=== PATIENT | female | born 1955 | race Caucasian/White ===

== ENCOUNTER 2018-06-29 13:24 | Emergency (ER) | payer OTHER ==
[2018-06-29] MEDS: KETOROLAC 15 MG INJ IM (16:03)
== END 2018-06-29 17:37 | disposition home or self-care (01) ==
LOC: FTE 13:24
DX: M65.28 Calcific tendinitis, other site (principal); M79.605 Pain in left leg; M54.5 Low back pain; E11.9 Type 2 diabetes mellitus without complications; Z79.84 Long term (current) use of oral hypoglycemic drugs
CPT/HCPCS: 72100; 72220; 73510; 73550; 96372; 99284-25

== ENCOUNTER 2018-07-25 17:59 | Emergency (ER) | payer OTHER ==
[2018-07-25] MEDS ORDERED: LIDOCAINE 1% (MDV) 20 ML INJ SC (21:00)
[2018-07-25] MEDS: LIDOCAINE 1% (MPF) 30 ML INJ SC (21:05)
[2018-07-25] MEDS: IBUPROFEN 600 MG TAB PO ×2 (21:21→21:23)
== END 2018-07-25 21:34 | disposition home or self-care (01) ==
LOC: FTE 17:59
DX: L60.0 Ingrowing nail (principal); I10 Essential (primary) hypertension; E11.9 Type 2 diabetes mellitus without complications; Z79.84 Long term (current) use of oral hypoglycemic drugs
CPT/HCPCS: 11765; 99283-25

== ENCOUNTER 2018-10-27 20:20 | Emergency (ER) | payer OTHER ==
[2018-10-27] MEDS: KETOROLAC 15 MG INJ IM (23:24)
== END 2018-10-28 00:39 | disposition home or self-care (01) ==
LOC: FTE 10-28 00:39
DX: I10 Essential (primary) hypertension (principal); E11.9 Type 2 diabetes mellitus without complications; Z79.84 Long term (current) use of oral hypoglycemic drugs
CPT/HCPCS: 96372; 99284-25

== ENCOUNTER 2018-12-02 18:51 | Emergency (ER) | payer OTHER ==
[2018-12-02] MEDS: IBUPROFEN 600 MG TAB PO (19:54)
[2018-12-02] MEDS: HYDROCODONE/APAP (5/325) TAB PO (19:55)
== END 2018-12-02 22:01 | disposition home or self-care (01) ==
LOC: FTE 18:51
DX: M79.605 Pain in left leg (principal); E11.9 Type 2 diabetes mellitus without complications; I10 Essential (primary) hypertension; Z79.84 Long term (current) use of oral hypoglycemic drugs
CPT/HCPCS: 73510; 99283-25

== ENCOUNTER 2019-01-05 22:55 | Emergency (ER) | payer OTHER ==
[2019-01-06] MEDS: DIAZEPAM 5 MG/ML SYG IM (01:46)
[2019-01-06] MEDS: KETOROLAC 60 MG INJ IM (01:46)
== END 2019-01-06 03:46 | disposition home or self-care (01) ==
LOC: E/R 22:55
DX: M54.9 Dorsalgia, unspecified (principal); I10 Essential (primary) hypertension; E11.9 Type 2 diabetes mellitus without complications; Z79.84 Long term (current) use of oral hypoglycemic drugs
CPT/HCPCS: 72100; 72170; 96372; 99284-25

== ENCOUNTER 2019-01-31 19:20 | Emergency (ER) | payer OTHER ==
[2019-01-31 20:33] LABS: ADD UMIC YES; UR ASCORBIC ACID NEGATIVE (NEGATIVE); UR BILIRUBIN (Dip) NEGATIVE (NEGATIVE); UR BLOOD (Dip) 1+ mg/dL (NEGATIVE); UR CLARITY CLEAR (CLEAR); UR COLOR YELLOW (YELLOW); UR GLUCOSE (Dip) 3+ mg/dL (NEGATIVE); UR KETONES (Dip) NEGATIVE (NEGATIVE); UR LEUKOCYTE ESTERASE (Dip) NEGATIVE Leu/ul (NEGATIVE); UR NITRITE (Dip) NEGATIVE (NEGATIVE); UR RBC 2 /HPF (0-5); UR SPECIFIC GRAVITY (Dip) 1.037 (1.003-1.030); UR TOTAL PROTEIN (Dip) NEGATIVE (NEGATIVE); UR UROBILINOGEN (Dip) NEGATIVE (NEGATIVE); UR WBC 1 /HPF (0-5)
[2019-01-31] MEDS: KETOROLAC 15 MG INJ IM (22:12)
== END 2019-01-31 22:13 | disposition home or self-care (01) ==
LOC: FTE 19:20
DX: M79.605 Pain in left leg (principal); I10 Essential (primary) hypertension; E11.9 Type 2 diabetes mellitus without complications; Z79.84 Long term (current) use of oral hypoglycemic drugs
CPT/HCPCS: 81001; 96372; 99284-25

== ENCOUNTER 2019-02-03 19:53 | Emergency (ER) | payer OTHER ==
[2019-02-03 21:49] LABS: ADD MAN DIFF? NO; URINE BLOOD (Dip) POC Trace-lysed (NEGATIVE); URINE KETONES (Dip) POC Negative (NEGATIVE); URINE LEUKOCYTE EST (Dip) POC Negative (NEGATIVE); URINE NITRITE (Dip) POC Negative (NEGATIVE); URINE TOTAL PROTEIN POC Negative (NEGATIVE)
[2019-02-03 21:52] LABS: BASOPHIL # 0.1 10^3/ul (0.0-0.1); BASOPHILS % 0.9 % (0.0-2.0); EOSINOPHILS # 0.4 10^3/ul (0.0-0.5); EOSINOPHILS % 7.5 % (0.0-7.0); HEMATOCRIT 38.7 % (37.0-47.0); LYMPHOCYTES # 2.3 10^3/ul (0.8-2.9); LYMPHOCYTES % 40.1 % (15.0-51.0); MEAN CORPUSCULAR HEMOGLOBIN 29.5 pg (29.0-33.0); MEAN CORPUSCULAR HGB CONC 33.6 g/dl (32.0-37.0); MEAN CORPUSCULAR VOLUME 87.8 fl (82.0-101.0); MEAN PLATELET VOLUME 9.9 fl (7.4-10.4); MONOCYTE # 0.5 10^3/ul (0.3-0.9); MONOCYTES % 8.6 % (0.0-11.0); NEUTROPHIL # 2.5 10^3/ul (1.6-7.5); NEUTROPHILS % 42.6 % (39.0-77.0); PLATELET COUNT 253 10^3/UL (140-415); RED BLOOD COUNT 4.41 10^6/ul (4.20-5.40); RED CELL DISTRIBUTION WIDTH 12.3 % (11.5-14.5)
[2019-02-03 21:52] LABS: WHITE BLOOD COUNT 5.8 10^3/ul (4.8-10.8)
[2019-02-03 22:08] LABS: ALANINE AMINOTRANSFERASE 41 IU/L (13-69); ALBUMIN 3.9 g/dl (3.3-4.9); ALBUMIN/GLOBULIN RATIO 1.25; ALKALINE PHOSPHATASE 231 IU/L (42-121); ANION GAP 7 (5-13); ASPARTATE AMINO TRANSFERASE 30 IU/L (15-46); BILIRUBIN,INDIRECT 0.3 mg/dl (0-1.1); BILIRUBIN,TOTAL 0.3 mg/dl (0.2-1.3); BLOOD UREA NITROGEN 14 mg/dl (7-20); CALCIUM 9.4 mg/dl (8.4-10.2); CARBON DIOXIDE 28 mmol/L (21-31); CHLORIDE 105 mmol/L (97-110); CREATININE 0.35 mg/dl (0.44-1.00); Estimated GFR > 60 mL/min (>60); GLUCOSE 253 mg/dl (70-220); LIPASE 50 U/L (23-300); POTASSIUM 3.9 mmol/L (3.5-5.1); SODIUM 140 mmol/L (135-144)
[2019-02-03] MEDS: morphine 2 MG INJ IV (22:24)
[2019-02-03] MEDS: KETOROLAC 30 MG INJ IV (22:25)
[2019-02-03] MEDS: ONDANSETRON 4 MG INJ IV (22:25)
== END 2019-02-03 23:34 | disposition home or self-care (01) ==
LOC: E/R 19:53
DX: M54.42 Lumbago with sciatica, left side (principal); I10 Essential (primary) hypertension; E11.9 Type 2 diabetes mellitus without complications; Z79.84 Long term (current) use of oral hypoglycemic drugs
CPT/HCPCS: 36415; 80053; 81003; 83690; 85025; 96374; 96375; 99284-25

== ENCOUNTER 2019-05-02 23:28 | Emergency (ER) | payer OTHER ==
[2019-05-02] MEDS: ASPIRIN 325 MG TAB PO (23:52)
[2019-05-02 23:56] LABS: ADD MAN DIFF? NO
[2019-05-03 00:21] LABS: ANION GAP 10 (5-13); BLOOD UREA NITROGEN 21 mg/dl (7-20); CALCIUM 9.2 mg/dl (8.4-10.2); CARBON DIOXIDE 25 mmol/L (21-31); CHLORIDE 108 mmol/L (97-110); CREATININE 0.45 mg/dl (0.44-1.00); Estimated GFR > 60 mL/min (>60); GLUCOSE 210 mg/dl (70-220); POTASSIUM 3.8 mmol/L (3.5-5.1); SODIUM 143 mmol/L (135-144)
[2019-05-03 00:33] LABS: TROPONIN-I < 0.012 ng/ml (0.000-0.120)
[2019-05-03 00:38] LABS: WHITE BLOOD COUNT 7.4 10^3/ul (4.8-10.8)
[2019-05-03 00:38] LABS: BASOPHIL # 0.1 10^3/ul (0.0-0.1); BASOPHILS % 1.2 % (0.0-2.0); EOSINOPHILS % 13.1 % (0.0-7.0); HEMATOCRIT 38.3 % (37.0-47.0); LYMPHOCYTES # 3.1 10^3/ul (0.8-2.9); LYMPHOCYTES % 41.7 % (15.0-51.0); MEAN CORPUSCULAR HGB CONC 33.9 g/dl (32.0-37.0); MEAN CORPUSCULAR VOLUME 88.2 fl (82.0-101.0); MEAN PLATELET VOLUME 10.7 fl (7.4-10.4); MONOCYTE # 0.6 10^3/ul (0.3-0.9); MONOCYTES % 8.3 % (0.0-11.0); NEUTROPHIL # 2.6 10^3/ul (1.6-7.5); NEUTROPHILS % 35.4 % (39.0-77.0); PLATELET COUNT 254 10^3/UL (140-415); RED BLOOD COUNT 4.34 10^6/ul (4.20-5.40)
== END 2019-05-03 00:53 | disposition home or self-care (01) ==
LOC: E/R 23:28
DX: R07.9 Chest pain, unspecified (principal); I10 Essential (primary) hypertension; E11.9 Type 2 diabetes mellitus without complications; Z79.84 Long term (current) use of oral hypoglycemic drugs
CPT/HCPCS: 36415; 71045; 80048; 84484; 85025; 93005; 99285-25